=== PATIENT | male | born 1990 | race African-American/Black ===

== ENCOUNTER → 2020-02-14 | Outpatient (CLI) | payer OTHER ==
--- NOTE | 2020-02-14 08:47 | REP ---
Clinical: Congenital pulmonary malformation. Technique: Axial noncontrast images from the thoracic inlet to the upper abdomen with coronal and sagittal re-formations. Comparison: None. Findings: The bilateral lung rice are well-aerated and clear. No consolidation, nodule or mass lesion. No pleural effusion. No pneumothorax. The tracheobronchial tree is patent and demonstrates normal branching pattern. Pulmonary vasculature is grossly normal by noncontrast evaluation. Thoracic aorta appears normal. The heart demonstrates prior surgical intervention at the level of the atrial septum possibly related to prior septal defect. Heart size and contour are normal and without cardiomegaly. Surrounding musculoskeletal structures are intact. Impression: 1. No acute process. Electronically Signed by Ham Hedrick MD 02/14/2020 08:39 A
== END ==
LOC: M RAD 06:58
PROVIDERS: ATTEND Internal Medicine Cardiovascular Disease
DX: Z86.73 Personal history of transient ischemic attack (TIA), and cerebral infarction without residual deficits (principal); Q21.1 Atrial septal defect; Q25.72 Congenital pulmonary arteriovenous malformation